=== PATIENT | male | born 1985 | race Caucasian/White ===

== ENCOUNTER → 2023-11-06 09:53 | Outpatient (CLI) | payer OTHER, SELFPAY ==
[2023-11-06 12:39] LABS: Semen Sperm Prescence Post-Vas Absent (ABSENT)
== END ==
PROVIDERS: PCP Family Medicine; Referring Provider Family Medicine; Visit Provider Family Medicine
DX: Z98.52 Vasectomy status (principal)
CPT/HCPCS: 89321